=== PATIENT | male | born 2000 | race Hispanic/Latino ===

== ENCOUNTER 2023-02-10 21:14 | Emergency (ER) | payer OTHER ==
[2023-02-10] MEDS ORDERED: Boostrix 0.5 ML (Tdap) VIAL (>/=7 yrs of age) ONE (23:06)
[2023-02-10] MEDS ORDERED: Lidocaine 4% Cream 5 GM TUBE w/ Tegaderm ONE (23:41)
== END 2023-02-11 01:07 ==
LOC: NAV ERS 21:14
DX: S01.311A Laceration without foreign body of right ear, initial encounter (principal); Y04.0XXA Assault by unarmed brawl or fight, initial encounter; Z23 Encounter for immunization
CPT/HCPCS: 12011; 90471; 90715

== ENCOUNTER 2023-02-11 21:09 | Emergency (ER) | payer OTHER ==
[2023-02-11] MEDS ORDERED: Lidocaine 1% w/Epinephrine 1:100K 20 ML VIAL ONE (23:36)
[2023-02-12] MEDS ORDERED: Bacitracin 1 PK ONE (01:10)
[2023-02-12] MEDS ORDERED: Penicillin V Potassium 250 MG TAB ONE (01:10)
== END 2023-02-12 01:15 ==
LOC: NAV ERS 21:09
DX: S01.21XA Laceration without foreign body of nose, initial encounter (principal); S01.511A Laceration without foreign body of lip, initial encounter; S01.311A Laceration without foreign body of right ear, initial encounter; W19.XXXA Unspecified fall, initial encounter; Z87.891 Personal history of nicotine dependence
CPT/HCPCS: 12013; 70450; 70486; 72126